=== PATIENT | female | born 1965 | race Hispanic/Latino ===

== ENCOUNTER → 2017-05-03 | Outpatient (CLI) | payer OTHER ==
--- NOTE | 2017-05-03 11:29 | Diagnostic Imaging Report ---
EXAM: DXA BONE DENSITY INDICATIONS: Not provided. COMPARISON: None. FINDINGS: Proximal left femur (femoral neck) bone mineral density (BMD) (g/cm2): 0.94 Femur T-score (standard deviation relative to young adult mean BMD): 0.5 Femur Z-score (standard deviation relative to age-matched control group):1.2 Lumbar bone mineral density (BMD) (g/cm2):0.99 Lumbar T-score (standard deviation relative to young adult mean BMD): -0.5 Lumbar Z-score (standard deviation relative to age-matched control group):0.2 Change since prior exam (%): Femur:Not applicable. Spine:Not applicable. Change since oldest prior exam (%): Femur:Not applicable. Spine:Not applicable. CONCLUSION: Bone mineral density is classified as normal. Fracture risk is not increased. World Health Organization Classification: *The Z-score is provided for informational purposes. The T-score is preferable for clinical decisions. When comparing exams, a change of >4% is considered statistically significant. SUGGESTED RECOMMENDATIONS: Normal \T\ Osteopenia:Consideration should be given to use of calcium supplementation, daily multiple vitamins and adequate exercise, as preventive measures against osteoporosis, if clinically indicated. Osteoporosis \T\ Severe Osteoporosis:In addition to the above, consideration should be given to medical therapy against osteoporosis, if clinically indicated. Dictated by: Minesh Drummond M.D. on 05/03/2017 at 11:39 Electronically approved by: Minesh Drummond M.D. on 05/03/2017 at 11:39
== END ==
LOC: DX 10:28
PROVIDERS: ATTEND Family Medicine
DX: N95.1 Menopausal and female climacteric states (principal)
CPT/HCPCS: 77080

== ENCOUNTER → 2018-08-23 | Outpatient (CLI) | payer OTHER | LOC: MAMMO 09:35 | PROVIDERS: ATTEND Family Medicine | DX: Z12.31 Encounter for screening mammogram for malignant neoplasm of breast (principal) | CPT/HCPCS: 77067 ==

== ENCOUNTER → 2020-06-25 | Outpatient (CLI) | payer OTHER | LOC: MAMMO 09:17 | PROVIDERS: ATTEND Family Medicine | DX: Z12.31 Encounter for screening mammogram for malignant neoplasm of breast (principal) | CPT/HCPCS: 77067 ==

== ENCOUNTER → 2021-05-06 | Outpatient (CLI) | payer OTHER | LOC: MAMMO 09:45 | PROVIDERS: ATTEND Family Medicine | DX: Z12.31 Encounter for screening mammogram for malignant neoplasm of breast (principal); Z13.820 Encounter for screening for osteoporosis | CPT/HCPCS: 77067; 77080 ==

== ENCOUNTER 2021-05-18 23:46 | Emergency (ER) | payer OTHER ==
[~2021-05-18] VITALS: Ht 154.9 cm; Wt 85.3 kg
[2021-05-19] MEDS ORDERED: ONDANSETRON HCL INJ 2MG/ML 2ML 2 MG/ML VIAL IV STA (00:35)
[2021-05-19] MEDS ORDERED: KETOROLAC TROMETHAMINE 30 MG/ML VIAL IV STA (00:35)
[2021-05-19] MEDS ORDERED: SODIUM CHLORIDE 0.9% 1000ML 1,000 ML IV SCH (00:45)
[2021-05-19] MEDS ORDERED: SODIUM CHLORIDE 0.9% 50ML 50 ML ONE (00:57)
[2021-05-19] MEDS ORDERED: IOPAMIDOL 370 MG/ML 200 ML INFUS..BTL INJ ONE (00:58)
[2021-05-19] MEDS ORDERED: SODIUM CHLORIDE 0.9% 1000ML 1,000 ML ONE (01:06)
[2021-05-19] MEDS ORDERED: KETOROLAC TROMETHAMINE 30 MG/ML VIAL ONE (01:06)
[2021-05-19] MEDS ORDERED: ONDANSETRON HCL INJ 2MG/ML 2ML 2 MG/ML VIAL ONE (01:06)
[2021-05-19] MEDS ORDERED: METHOCARBAMOL750 MG PO (02:30)
[2021-05-19] MEDS ORDERED: ULTRAM 50MG50 MG PO (02:31)
[2021-05-19 02:35] VITALS: BP 121/70
== END 2021-05-19 02:40 | disposition home or self-care (01) ==
LOC: FSED 23:50
DX: M54.14 Radiculopathy, thoracic region (principal); R10.13 Epigastric pain; R11.0 Nausea; I10 Essential (primary) hypertension; M19.09 Primary osteoarthritis, other specified site; R94.31 Abnormal electrocardiogram [ECG] [EKG]
CPT/HCPCS: 74177; 80048; 80076; 81003; 82553; 84484; 85025; 96374; 96376; 99284; J1885; J2405; J7030; Q9967